=== PATIENT | female | born 1995 | race African-American/Black ===

== ENCOUNTER 2019-02-26 07:40 | Observation (INO) | payer MEDICAID, OTHER ==
[~2019-02-26] VITALS: Ht 162.6 cm; Wt 90.7 kg
[2019-02-26 07:51] VITALS: BP 123/83
[2019-02-26 09:31] LABS: Urine Bacteria FEW /hpf (None Seen); Urine Blood Negative /uL (Negative); Urine Mucus FEW (None Seen); Urine Specific Gravity 1.019 (1.001-1.035); Urine WBC 56 /hpf (0 - 5)
== END 2019-02-26 10:42 | disposition home or self-care (01) | DRG 566 ==
LOC: ER 07:43 → LDRP 08:08
PROVIDERS: ADMIT Specialist; ATTEND Specialist
DX: O26.893 Other specified pregnancy related conditions, third trimester (principal); N89.8 Other specified noninflammatory disorders of vagina; R10.9 Unspecified abdominal pain; O34.63 Maternal care for abnormality of vagina, third trimester; Z3A.30 30 weeks gestation of pregnancy
CPT/HCPCS: 59025; 81001; 81002; 84112; 87086; 99284; G0378

== ENCOUNTER 2019-03-09 18:15 | Observation (INO) | payer MEDICAID ==
[~2019-03-09] VITALS: Ht 154.9 cm; Wt 92.1 kg
[2019-03-09] MEDS ORDERED: diphenhdrAMINE HCL 25 MG CAP PO ONE (19:00)
[2019-03-09 19:24] LABS: Albumin 2.6 g/dL (3.4-5.0); Potassium 3.5 mmol/L (3.5-5.1)
[2019-03-09 19:25] LABS: Basophils # (auto) 0 uL; Basophils % (auto) 0.2 % (0.0-2.0); Eosinophils # (auto) 0 uL; Eosinophils % (auto) 0.8 % (0.0-7.0); Lymphocytes # (auto) 1.5 uL; Lymphocytes % (auto) 24.8 % (10.0-50.0); Mean Corpuscular Hemoglobin 27.1 pg (28.0-32.0); Mean Corpuscular Hgb Conc. 32.3 g/dL (32.0-36.0); Mean Corpuscular Volume 83.8 fL (80.0-100.0); Monocytes # (auto) 0.6 uL; Monocytes % (auto) 10.3 % (0.0-12.0); Neutrophils # (auto) 3.9 uL; Neutrophils % (auto) 63.9 % (37.0-80.0); Nucleated Red Blood Cells % 0.2 %; Platelet Count (auto) 203 10^3/uL (140-450); Red Blood Cells 4.05 10^6/uL (4.0-5.20); White Blood Cell 6.2 10^3/uL (4.4-10.8)
[2019-03-09 19:29] LABS: Bilirubin, Total 0.3 mg/dL (0.2-1.0); Total Protein 6.5 g/dL (6.4-8.2); Uric Acid 3.2 mg/dL (2.6-6.0)
[2019-03-09 19:38] LABS: INR 0.96 (0.9-1.15); Partial Thromboplastin Time 29.3 sec (23.64-32.05)
[2019-03-09 19:57] LABS: Alcohol, Urine < 3.0 mg/dL (0-5); Amphetamine Screen, Urine NEGATIVE (NEGATIVE); Barbiturate Scree,Urine NEGATIVE (NEGATIVE); Benzodiazephine Screen, Urine NEGATIVE (NEGATIVE); Cannabinoid Screen, Urine NEGATIVE (NEGATIVE); Cocaine Screen, Urine NEGATIVE (NEGATIVE); Opiate Scree,Urine NEGATIVE (NEGATIVE); Phencyclidine Screen, Urine NEGATIVE (NEGATIVE)
[2019-03-09 20:33] LABS: Urine Bacteria FEW /hpf (None Seen); Urine Blood Negative /uL (Negative); Urine Specific Gravity 1.006 (1.001-1.035); Urine WBC 27 /hpf (0 - 5)
== END 2019-03-09 20:00 | disposition home or self-care (01) | DRG 566 ==
LOC: LDRP 18:15
PROVIDERS: ADMIT Obstetrics & Gynecology; ATTEND Obstetrics & Gynecology
DX: O26.893 Other specified pregnancy related conditions, third trimester (principal); L29.9 Pruritus, unspecified; Z3A.32 32 weeks gestation of pregnancy
CPT/HCPCS: 36415; 59025; 80053; 80307; 81001; 81002; 84550; 85025; 85610; 85730; G0378

== ENCOUNTER 2019-03-13 13:00 | Observation (INO) | payer MEDICAID ==
[2019-03-13] MEDS ORDERED: URSO300C4 PO (13:35)
== END 2019-03-13 14:34 | disposition home or self-care (01) | DRG 566 ==
LOC: LDRP 13:00
PROVIDERS: ADMIT Obstetrics & Gynecology; ATTEND Obstetrics & Gynecology
DX: O26.613 Liver and biliary tract disorders in pregnancy, third trimester (principal); K83.1 Obstruction of bile duct; Z3A.32 32 weeks gestation of pregnancy
CPT/HCPCS: 59025; 81002; G0378

== ENCOUNTER 2019-03-16 12:43 | Observation (INO) | payer MEDICAID ==
[~2019-03-16 12:43] MED LIST: URSO300C4 PO
== END 2019-03-16 13:50 | disposition home or self-care (01) | DRG 566 ==
LOC: LDRP 12:43
PROVIDERS: ADMIT Obstetrics & Gynecology; ATTEND Obstetrics & Gynecology
DX: O26.613 Liver and biliary tract disorders in pregnancy, third trimester (principal); K83.1 Obstruction of bile duct; Z3A.33 33 weeks gestation of pregnancy
CPT/HCPCS: 59025; 76818; 81002; G0378

== ENCOUNTER 2019-03-20 13:36 | Observation (INO) | payer MEDICAID ==
[2019-03-20] MEDS ORDERED: PREN-96 PO (14:15)
== END 2019-03-20 14:32 | disposition home or self-care (01) | DRG 566 ==
LOC: LDRP 13:36
PROVIDERS: ADMIT Obstetrics & Gynecology; ATTEND Obstetrics & Gynecology
DX: O26.613 Liver and biliary tract disorders in pregnancy, third trimester (principal); K83.1 Obstruction of bile duct; Z3A.33 33 weeks gestation of pregnancy
CPT/HCPCS: 59025; 76818; 81002; G0378

== ENCOUNTER 2019-03-23 13:31 | Observation (INO) | payer MEDICAID ==
[~2019-03-23 13:31] MED LIST changes: +PREN-96 PO
== END 2019-03-23 15:34 | disposition home or self-care (01) | DRG 566 ==
LOC: LDRP 13:31
PROVIDERS: ADMIT Obstetrics & Gynecology; ATTEND Obstetrics & Gynecology
DX: O26.613 Liver and biliary tract disorders in pregnancy, third trimester (principal); Z3A.34 34 weeks gestation of pregnancy
CPT/HCPCS: 59025; 76818; 81002; G0378

== ENCOUNTER 2019-03-27 12:45 | Observation (INO) | payer MEDICAID | END 2019-03-27 14:00 | disposition home or self-care (01) | DRG 566 | LOC: LDRP 12:45 | PROVIDERS: ADMIT Obstetrics & Gynecology; ATTEND Obstetrics & Gynecology | DX: O26.613 Liver and biliary tract disorders in pregnancy, third trimester (principal); K83.1 Obstruction of bile duct; O99.89 Other specified diseases and conditions complicating pregnancy, childbirth and the puerperium; H92.02 Otalgia, left ear; Z3A.34 34 weeks gestation of pregnancy | CPT/HCPCS: 59025; 76818; 81002; G0378 ==

== ENCOUNTER 2019-03-30 13:39 | Observation (INO) | payer MEDICAID | END 2019-04-03 15:15 | disposition home or self-care (01) | DRG 566 | LOC: LDRP 13:39 → UNDOADMOB 13:39 → LDRP 04-03 13:50 | PROVIDERS: ADMIT Specialist; ATTEND Specialist | DX: O26.613 Liver and biliary tract disorders in pregnancy, third trimester (principal); K83.1 Obstruction of bile duct; Z3A.35 35 weeks gestation of pregnancy | CPT/HCPCS: 59025; 76818; 81002; G0378 ==

== ENCOUNTER 2019-04-10 13:18 | Inpatient (IN) | payer MEDICAID ==
[~2019-04-10] VITALS: Ht 165.1 cm; Wt 95.3 kg
[2019-04-10] MEDS ORDERED: BETAMETHASONE ACET (6MG/ML) 5ML VIAL IM ONE (16:00)
[2019-04-10 16:56] LABS: Basophils # (auto) 0 uL; Basophils % (auto) 0.2 % (0.0-2.0); Eosinophils # (auto) 0 uL; Eosinophils % (auto) 0.7 % (0.0-7.0); Hematocrit 37.2 % (36.0-46.0); Hemoglobin 12.1 g/dL (12.2-16.2); Lymphocytes # (auto) 1.3 uL; Lymphocytes % (auto) 21.6 % (10.0-50.0); Mean Corpuscular Hgb Conc. 32.6 g/dL (32.0-36.0); Monocytes # (auto) 0.5 uL; Monocytes % (auto) 9.1 % (0.0-12.0); Neutrophils % (auto) 68.4 % (37.0-80.0); Nucleated Red Blood Cells % 0.1 %; Platelet Count (auto) 228 10^3/uL (140-450); Red Blood Cells 4.48 10^6/uL (4.0-5.20); Red Cell Distribution Width 14.7 % (11.8-14.3); White Blood Cell 5.8 10^3/uL (4.4-10.8)
[2019-04-10 17:00] LABS: Urine Bacteria MOD /hpf (None Seen); Urine Blood TRACE /uL (Negative); Urine Budding Yeast OCCASIONAL /hpf (None Seen); Urine Specific Gravity 1.012 (1.001-1.035); Urine WBC 12 /hpf (0 - 5)
[2019-04-10 17:13] LABS: INR 0.95 (0.9-1.15); Partial Thromboplastin Time 29.1 sec (23.64-32.05)
[2019-04-10 17:14] LABS: Albumin 2.8 g/dL (3.4-5.0); BUN/Creatinine Ratio 10.1; Calcium 9.2 mg/dL (8.5-10.1); Uric Acid 3.5 mg/dL (2.6-6.0)
[2019-04-10 17:15] LABS: Alcohol, Urine < 3.0 mg/dL (0-5); Amphetamine Screen, Urine NEGATIVE (NEGATIVE); Barbiturate Scree,Urine NEGATIVE (NEGATIVE); Benzodiazephine Screen, Urine NEGATIVE (NEGATIVE); Cannabinoid Screen, Urine NEGATIVE (NEGATIVE); Cocaine Screen, Urine NEGATIVE (NEGATIVE); Opiate Scree,Urine NEGATIVE (NEGATIVE); Phencyclidine Screen, Urine NEGATIVE (NEGATIVE)
[2019-04-10 17:17] LABS: Bilirubin, Total 0.3 mg/dL (0.2-1.0); Total Protein 7.3 g/dL (6.4-8.2)
[2019-04-10] MEDS ORDERED: LACTATED RINGER'S 1,000 ML IV SCH (18:16)
[2019-04-10] MEDS ORDERED: LACT. RINGERS/OXYTOCIN 20UNITS 1,000 ML IV SCH (18:16)
[2019-04-10] MEDS ORDERED: PHISODERM TOP SOLN 240ML BTL TOP PRN (18:30)
[2019-04-10] MEDS ORDERED: DERMOPLAST 60ML BOTTLE TOP PRN (18:30)
[2019-04-10] MEDS ORDERED: METHYLERGONOVINE MALEATE 0.2 MG/ML AMP IM PRN (18:30)
[2019-04-10] MEDS ORDERED: WITCH HAZEL-GLYCERIN PAD TOP PRN (18:30)
[2019-04-10] MEDS ORDERED: LIDOCAINE 2%HCL (LOCAL ANESTH.) INJ 20ML MDV ID ONE (18:30)
[2019-04-10] MEDS ORDERED: NALBUPHINE HCL 10 MG/1ml INJECTION IV PRN (18:30)
[2019-04-10] MEDS: URSODIOL 300 MG CAP PO SCH (22:11)
[2019-04-11] MEDS ORDERED: BETAMETHASONE ACET (6MG/ML) 5ML VIAL IM ONE (05:00)
--- NOTE | 2019-04-11 05:15 | NUR ---
[facility] [place] [facility] Addendum: 04/11/19 at 0516 by MARU HUBBARD RN Per Dr Galeana
[2019-04-11] MEDS: URSODIOL 300 MG CAP PO SCH (06:04)
[2019-04-11 06:07] LABS: RPR Non Reactive (Non Reactive)
[2019-04-11] MEDS ORDERED: URSODIOL 300 MG PO SCH (22:00)
== END 2019-04-11 08:15 | disposition home or self-care (01) | DRG 566 ==
LOC: LDRP 13:18 → OBSVTOIN 17:47 → LDRP 17:48
PROVIDERS: ADMIT Specialist; ATTEND Specialist
DX: O26.613 Liver and biliary tract disorders in pregnancy, third trimester (principal); K83.1 Obstruction of bile duct; O99.344 Other mental disorders complicating childbirth; F32.9 Major depressive disorder, single episode, unspecified; Z3A.36 36 weeks gestation of pregnancy; O99.820 Streptococcus B carrier state complicating pregnancy
CPT/HCPCS: 36415; 59025; 76818; 80053; 80307; 81001; 81002; 84112; 84550; 85025; 85610; 85730; 86592; 86850; 86900; 86901; 96365; 96366; 96372; G0378

== ENCOUNTER 2020-10-05 12:36 | Emergency (ER) | payer MEDICAID ==
[~2020-10-05] VITALS: Ht 162.6 cm; Wt 83.9 kg
[~2020-10-05 12:36] MED LIST changes: -URSO300C4 PO
[2020-10-05 12:38] VITALS: BP 126/87
== END 2020-10-05 15:05 | disposition left against medical advice (07) ==
LOC: ER 12:36
DX: Z76.0 Encounter for issue of repeat prescription (principal); Z53.21 Procedure and treatment not carried out due to patient leaving prior to being seen by health care provider

== ENCOUNTER 2020-10-06 09:43 | Emergency (ER) | payer MEDICAID ==
[~2020-10-06] VITALS: Ht 162.6 cm; Wt 83.9 kg
[2020-10-06 09:48] VITALS: BP 130/82
[2020-10-06] MEDS ORDERED: PENICILLIN G BENZ 1200000 UNITS/2 ML SYRG IM ONE (10:15)
== END 2020-10-06 10:40 | disposition home or self-care (01) ==
LOC: ER 09:43
DX: O98.113 Syphilis complicating pregnancy, third trimester (principal); Z79.899 Other long term (current) drug therapy; Z3A.28 28 weeks gestation of pregnancy
CPT/HCPCS: 96372; 99283; J0561

== ENCOUNTER 2020-10-13 10:38 | Emergency (ER) | payer MEDICAID ==
[~2020-10-13] VITALS: Ht 162.6 cm; Wt 83.9 kg
[2020-10-13] MEDS ORDERED: PENICILLIN G BENZ 1200000 UNITS/2 ML SYRG IM ONE (11:15)
[2020-10-13 11:48] VITALS: BP 122/87
== END 2020-10-13 11:50 | disposition home or self-care (01) ==
LOC: ER 10:38
DX: O98.113 Syphilis complicating pregnancy, third trimester (principal); Z3A.29 29 weeks gestation of pregnancy
CPT/HCPCS: 96372; 99283; J0561

== ENCOUNTER 2020-10-20 10:32 | Emergency (ER) | payer MEDICAID ==
[~2020-10-20] VITALS: Ht 162.6 cm; Wt 83.9 kg
[2020-10-20 10:44] VITALS: BP 126/73
[2020-10-20] MEDS ORDERED: PENICILLIN G BENZ 1200000 UNITS/2 ML SYRG IM ONE (11:00)
== END 2020-10-20 11:15 | disposition home or self-care (01) ==
LOC: ER 10:32
DX: O98.113 Syphilis complicating pregnancy, third trimester (principal); Z3A.30 30 weeks gestation of pregnancy
CPT/HCPCS: 96372; 99283; J0561